=== PATIENT | female | born 2005 | race Caucasian/White ===

== ENCOUNTER 2024-02-20 13:31 | Emergency (ER) | payer SELFPAY ==
[~2024-02-20] VITALS: Ht 165.1 cm; Wt 55.5 kg
[2024-02-20 13:44] VITALS: BP 109/72; PULSE 80; TEMP 98.3
== END 2024-02-20 16:09 | disposition home or self-care (01) ==
LOC: COL.ER 13:31
DX: S60.221A Contusion of right hand, initial encounter (principal); W22.01XA Walked into wall, initial encounter